=== PATIENT | male | born 1955 | race Caucasian/White ===

== ENCOUNTER 2017-09-02 17:57 | Emergency (ER) | payer MEDICAID ==
[~2017-09-02] VITALS: Ht 188 cm; Wt 66.5 kg
[~2017-09-02 17:57] MED LIST: ALBU8.5H8 IH; ALBU8.5H8 INH; GUAI120L55 PO; NO HOME MEDS; PRED10TA PO
[2017-09-02 18:35] VITALS: BP 122/68
== END 2017-09-02 23:38 | disposition left against medical advice (07) ==
LOC: ER 17:57
DX: H57.10 Ocular pain, unspecified eye (principal); Z53.21 Procedure and treatment not carried out due to patient leaving prior to being seen by health care provider

== ENCOUNTER 2018-06-24 23:45 | Emergency (ER) | payer MEDICAID ==
[~2018-06-24] VITALS: Ht 188 cm; Wt 65.9 kg
[2018-06-24 23:48] VITALS: BP 144/48
[2018-06-24] MEDS ORDERED: ipratropium/albuterol 3ml nebule NEB ONE (23:55)
[2018-06-24] MEDS ORDERED: dexamethasone 4mg tablet PO ONE (23:55)
[2018-06-25] MEDS ORDERED: ALBU8HFA PO (00:06)
[2018-06-25] MEDS ORDERED: DOXY100C43 PO (00:06)
[2018-06-25] MEDS ORDERED: PRED20TA PO (00:06)
== END 2018-06-25 00:40 | disposition home or self-care (01) ==
LOC: ER 23:46
DX: J20.9 Acute bronchitis, unspecified (principal); J22 Unspecified acute lower respiratory infection; J44.9 Chronic obstructive pulmonary disease, unspecified; F15.10 Other stimulant abuse, uncomplicated; F17.290 Nicotine dependence, other tobacco product, uncomplicated; Z86.19 Personal history of other infectious and parasitic diseases
CPT/HCPCS: 71046; 87502; 87503; 94640; 94760; 99284; 99406; J8540

== ENCOUNTER 2019-05-27 02:10 | Emergency (ER) | payer MEDICAID ==
[~2019-05-27] VITALS: Ht 188 cm; Wt 70.5 kg
[2019-05-27] MEDS ORDERED: CIPR-230 PO (03:37)
[2019-05-27 03:48] VITALS: BP 117/62
== END 2019-05-27 03:49 | disposition home or self-care (01) ==
LOC: ER 02:11
DX: J47.1 Bronchiectasis with (acute) exacerbation (principal); F15.10 Other stimulant abuse, uncomplicated; F17.200 Nicotine dependence, unspecified, uncomplicated
CPT/HCPCS: 99283

== ENCOUNTER 2020-06-12 12:27 | Emergency (ER) | payer MEDICAID ==
[~2020-06-12] VITALS: Ht 182.9 cm; Wt 66.0 kg
[2020-06-12 13:12] LABS: BASOPHILS % (AUTO) 0.2 % (0-1); EOSINOPHILS # (AUTO) 0.4 X10'3 (0-0.9); HEMATOCRIT 42.9 % (42.0-52.0); HEMOGLOBIN 14.6 g/dl (14.0-17.9); LYMPHOCYTES # (AUTO) 1.5 X10'3 (1.1-4.8); LYMPHOCYTES % (AUTO) 14.9 % (21-51); MEAN CORPUSCULAR HEMOGLOBIN 34.8 PG (27.0-31.0); MEAN CORPUSCULAR HGB CONC 34.1 g/dL (33.0-36.5); MEAN CORPUSCULAR VOLUME 102.2 FL (78-98); MEAN PLATELET VOLUME 9.3 FL (7.4-10.4); MONOCYTES # (AUTO) 1.1 X10'3 (0-0.9); MONOCYTES % (AUTO) 11.1 % (2-12); NEUTROPHILS # (AUTO) 7.2 X10'3 (1.8-7.7); NEUTROPHILS % (AUTO) 69.8 % (42-75); PLATELET COUNT 239 X10'3 (140-440); RED CELL DISTRIBUTION WIDTH 14.4 % (11.5-14.5); WHITE BLOOD COUNT 10.3 X10'3 (4.5-11.0)
[2020-06-12 13:24] LABS: ALANINE AMINOTRANSFERASE 47 U/L (12-78); ALBUMIN 3.6 G/DL (3.4-5.0); ALBUMIN/GLOBULIN RATIO 1.1 (1.1-1.5); ALKALINE PHOSPHATASE 114 IU/L (46-116); ANION GAP 4 (8-16); ASPARTATE AMINO TRANSFERASE 29 U/L (10-37); BILIRUBIN,TOTAL 0.5 MG/DL (0.1-1.0); BLOOD UREA NITROGEN 28 MG/DL (7-18); BUN/CREATININE RATIO 24.6 (5.4-32.0); CALCIUM 10.2 MG/DL (8.5-10.1); CHLORIDE 108 MMOL/L (99-107); CREATININE 1.14 MG/DL (0.60-1.10); GLUCOSE 145 MG/DL (70-104); POTASSIUM 4.3 MMOL/L (3.5-5.1); SODIUM 144 MMOL/L (135-145); TOTAL CARBON DIOXIDE 32.2 MMOL/L (24-32); TOTAL PROTEIN 6.8 G/DL (6.4-8.2); eGFR 65 ML/MIN
[2020-06-12 14:19] VITALS: BP 103/61
[2020-06-12] MEDS ORDERED: LIDOcaine 5% patch TP STA (14:19)
[2020-06-12] MEDS ORDERED: ketorolac tromethamine 15mg/ml inj. IM ONE (14:20)
[2020-06-12] MEDS ORDERED: IBUP-1985 PO (15:09)
[2020-06-12] MEDS ORDERED: LIDO700A32 TOP (15:09)
== END 2020-06-12 15:26 | disposition home or self-care (01) ==
LOC: ER 12:27
DX: R07.89 Other chest pain (principal); R22.2 Localized swelling, mass and lump, trunk; J44.9 Chronic obstructive pulmonary disease, unspecified; F15.90 Other stimulant use, unspecified, uncomplicated; Z79.899 Other long term (current) drug therapy
CPT/HCPCS: 36415; 71045; 80053; 83880; 84484; 85025; 93005; 96372; 99285; J1885

== ENCOUNTER 2021-03-18 12:57 | Emergency (ER) | payer MEDICAID ==
[~2021-03-18] VITALS: Ht 188 cm; Wt 65.0 kg
[~2021-03-18 12:57] MED LIST changes: +ALBU8.5H17 IH; +ALBU8.5H17 INH; -ALBU8.5H8 IH; -ALBU8.5H8 INH; +IBUP-1985 PO; +LIDO700A32 TOP
[2021-03-18 13:42] VITALS: BP 95/57
== END 2021-03-18 14:21 | disposition home or self-care (01) ==
LOC: ER 12:58
DX: J44.1 Chronic obstructive pulmonary disease with (acute) exacerbation (principal); J20.9 Acute bronchitis, unspecified; J44.0 Chronic obstructive pulmonary disease with (acute) lower respiratory infection
CPT/HCPCS: 36415; 99284; U0003; U0005; 99283